=== PATIENT | male | born 2005 | race Caucasian/White ===

== ENCOUNTER 2025-02-14 16:37 | Emergency (ER) | payer SELFPAY ==
--- NOTE | ~2025-02-14 | XR_ITS ---
XR wrist LT min 3V Ordering provider: Conor Diane MD History: . fall/pain/injury LT WRIST VS GLF . Comparison: None. FINDINGS: BONES: Longitudinal fracture involving the distal epiphysis of the left radius with extension to the joint space. No other fractures seen. No definite scaphoid fracture. JOINT SPACES: Well maintained. SOFT TISSUES: Normal. IMPRESSION: Fracture of the distal metaphysis of the left radius with no significant displacement. Reviewed, dictated and finalized at location A. IMPRESSION: Fracture of the distal metaphysis of the left radius with no significant displa cement.
[2025-02-14 16:37] VITALS: BP 124/69; PULSE 65; RESP 14; TEMP 36.8; O2SAT 100
--- NOTE | 2025-02-14 18:19 | ED_ITS ---
HPI - Extremity Injury (Upper) General Chief Complaint: Extremity Injury, Upper Stated Complaint: left wrist injury Time Seen by Provider: 02/14/25 18:18 Source: patient Mode of arrival: ambulatory Limitations: no limitations History of Present Illness HPI narrative: PATIENT ACCIDENTALLY LOST HIS BALANCE WHILE STANDING POSITION FALLING BACKWARD LANDED ON THE LEFT WRIST. HE DENIES OTHER INJURIES. PRIOR TO ARRIVAL. Related Data Allergies Allergy/AdvReac Type Severity Reaction Status Date / Time No Known Allergies Allergy Mild Verified 02/14/25 16:39 Review of Systems Review of Systems: All systems reviewed & are unremarkable except as noted in HPI and below Exam Narrative: GENERAL APPEARANCE: WELL-DEVELOPED, WELL-NOURISHED SKIN: NORMAL COLOR HEAD: NORMOCEPHALIC, NONTRAUMATIC NECK: SUPPLE, NONTENDER CHEST AND RESPIRATORY: AIRWAY PATENT, NO RESPIRATORY DISTRESS, NO ACCESSORY MUSCLE USE HEART: REGULAR RATE/RHYTHM ABDOMEN: SOFT, NONTENDER, NO ORGANOMEGALY, QUIET BOWEL SOUNDS VASCULAR: NORMAL PERIPHERAL PULSES, NORMAL CAPILLARY REFILL. MUSCULOSKELETAL: LEFT WRIST SHOWED DIFFUSE TENDERNESS, SLIGHT DEFORMITY, LIMITED RANGE OF MOTION NEUROLOGIC: ALERT AND ORIENTED ?3, HEALTH INFORMATION CODER IS NORMAL TESTED, NO GROSS MOTOR DEFICIT Course Vital Signs Vital signs: Vital Signs Temperature 36.8 C 02/14/25 16:37 Pulse Rate 65 02/14/25 16:37 Respiratory Rate 14 02/14/25 16:37 Blood Pressure 124/69 02/14/25 16:37 Pulse Oximetry 100 02/14/25 16:37 Temperature 36.8 C 02/14/25 16:37 Pulse Rate 65 02/14/25 16:37 Respiratory Rate 14 02/14/25 16:37 Blood Pressure 124/69 02/14/25 16:37 Pulse Oximetry 100 02/14/25 16:37 MDM - Extremity Injury (Upper) [facility] Narrative Medical decision making narrative: PATIENT CAME WITH A FALL, LEFT HAND LEFT WRIST PAIN, X-RAY OF THE LEFT WRIST SHOWED DISTAL RADIAL FRACTURE, NONDISPLACED, SPLINT, PATIENT NEUROVASCULAR INTACT TO BEFORE AND AFTER SPLINT PLACEMENT DISCHARGE HOME FOLLOW-UP WITH DR. CARTER Differential Diagnosis Differential diagnosis: Likely sprain and strain of wrist and fracture of wrist Imaging Data Radiologist's impression: Impressions Wrist X-Ray 02/14/25 17:07 IMPRESSION: Fracture of the distal metaphysis of the left radius with no significant displacement. Critical Care Time Critical Care Time Critical Care Time: No Discharge Plan Discharge Clinical Impression: Fracture of left wrist Patient Disposition: Home Condition: Stable Instructions: Wrist Fracture in Adults (ED) Additional Instructions: RETURN IF SYMPTOMS ARE WORSENING , CALL FOR APPOINTMENT, TAKE TYLENOL, IBUPROFEN NEEDED FOR ACHES AND PAIN, CONTINUE HOME MEDICATIONS. Patient Language: Occitan Follow-up/Referrals: PHYSICIAN NOT ON STAFF,NONSTAFF [Primary Care Provider] - Guzman Perry MD [Physician] - 02/17/25
[2025-02-14] MEDS: HYDROcodone/acetaminophen (*CRX) 5-325 MG TABLET 1 TAB PO (19:22)
[2025-02-14] MEDS: IBUPROFEN 600 MG TABLET PO (19:22)
== END 2025-02-14 21:29 | disposition home or self-care (01) ==
PROVIDERS: Emergency Provider Emergency Medicine
DX: S52.502A Unspecified fracture of the lower end of left radius, initial encounter for closed fracture (principal); W18.30XA Fall on same level, unspecified, initial encounter
CPT/HCPCS: 29125; 73110; 99284; A4565; A9270